=== PATIENT | female | born 1985 | race Caucasian/White ===

== ENCOUNTER 2025-07-16 18:39 | Emergency (ER) | payer OTHER, MEDICAID ==
[~2025-07-16] VITALS: Ht 160 cm; Wt 78.0 kg
[2025-07-16 18:44] VITALS: TEMP 37; O2SAT 99
[2025-07-16] MEDS: LIDOCAINE 5% PATCH TOP SCH (19:15)
[2025-07-16 19:53] VITALS: BP 133/82; PULSE 96; RESP 19
[2025-07-16] MEDS: KETOROLAC 15MG/ML VIAL IM ONE (19:53)
[2025-07-16] MEDS ORDERED: NAPR-1176 MT (20:52)
[2025-07-16] MEDS ORDERED: LIDO-53 TP (20:52)
== END 2025-07-16 21:25 | disposition home or self-care (01) ==
LOC: ER 18:39
DX: S80.10XA Contusion of unspecified lower leg, initial encounter (principal); V89.2XXA Person injured in unspecified motor-vehicle accident, traffic, initial encounter; Y92.410 Unspecified street and highway as the place of occurrence of the external cause; Y93.89 Activity, other specified; Y99.8 Other external cause status
CPT/HCPCS: 99283; 81025; 96372; J1885